=== PATIENT | male | born 1990 | race Two or more races ===

== ENCOUNTER 2024-09-18 23:42 | Emergency (ER) | payer BC, SELFPAY ==
[2024-09-18 23:42] VITALS: BMI 37.5
[2024-09-19 00:29] VITALS: BP 186/116; BP 186/117; PULSE 98; RESP 18; TEMP 37; O2SAT 97
--- NOTE | 2024-09-19 00:54 | PD.EDWOUND ---
ED Wound/Laceration-RME/HPI General Chief Complaint: Wound/Laceration Stated Complaint: R THUMB LAC Time Seen by Provider: 09/18/24 23:48 Arrival date/time: 09/18/24 23:42 34-year-old male reports with complaints of a laceration to the right thumb. Patient states while picking up a mirror it sliced a part of his right thumb off he denies numbness or tingling decreased range of motion or weakness of the thumb. Patient does not recall last tetanus update. Patient denies history of hypertension he also denies shortness of breath chest pain nausea vomiting dizziness blurred vision ringing in ears or headache Limitations: no limitations Related Data Home Medications ?Medication ?Instructions ?Recorded ?Confirmed NO HOME MEDS ##0 11/12/09 Allergies Allergy/AdvReac Type Severity Reaction Status Date / Time NKA* Allergy Uncoded 09/18/24 23:44 Review of Systems Constitutional Constitutional: Denies chills, Denies fatigue and Denies fever(s) Musculoskeletal Musculoskeletal: Denies arthralgias, Denies deformity, Denies joint swelling, Denies numbness and Denies tingling Integumentary/Breasts Skin/Breast: Denies unusual bruising and Reports wounds Neurologic Neurologic: Denies numbness and Denies tingling Endocrine Endocrine: Denies fatigue Hematologic/Lymphatic Hematologic/Lymphatic: Denies easy bleeding and Denies easy bruising Past Medical History Social History SMOKING STATUS: Never smoker ED Exam General Limitations: Present no limitations General appearance: Present alert and in no apparent distress Extremities Exam Extremities exam: Present other (right thumb with 1 cm in diameter skin avulsion volar aspect, no ligament or tendon involvment, FROM, cap refill < 2 sec, sensory intact, strength 5/5 remainder of hand unremarkable, wrist FROM pulses/reflexes 2+, sensory intact) Neurological Exam Neurological exam: Present alert, oriented X3 and CN II-XII intact Psychiatric Psychiatric exam: Present normal affect and normal mood Skin Skin exam: Present warm, dry, intact and normal color Course Quality Measures none Orders Category Date Time Status Wound Care NOW Care 09/19/24 00:53 Active Tet,Diphth,Pertuss(Acell)-Tdap [Boostrix Vacc] Med 09/19/24 00:53 Discontinued 0.5 ml IMI .ONCE ONE Vital Signs Vital signs: Vital Signs Temperature 98.6 F 09/19/24 00:29 Pulse Rate 98 09/19/24 00:29 Respiratory Rate 18 09/19/24 00:29 Blood Pressure 186/117 H 09/19/24 00:29 Pulse Oximetry (%) 97 09/19/24 00:29 Oxygen Delivery Method Room Air 09/19/24 00:29 Wound / Laceration Patient data External records reviewed:: None Clinical information provided by:: patient Social determinants that could affect healthcare access:: none Patient has the following chronic illnesses:: none How is presenting disease/condition affected by chronic disease/condition?: no chronic disease Evaluation data The following diagnostics were reviewed and interpreted by me:: other (specify) (none) Lab and/or radiology exams considered but not ordered:: none Interpretation Summary: n/a Medications / Prescriptions Medications or Prescriptions considered but not ordered:: none Medication administrations:: Medication Administration History Discontinued Medications Diphtheria/Tetanus/Acell Pertussis (Diphth,Pertuss(Acell),Tet Vac 0.5 Ml Syr) 0.5 ml IMi .ONCE ONE Stop: 09/19/24 00:54 Tdap Consultations Consultation(s) initiated? (list below): No Diagnosis Wound Differential Diagnosis: laceration, abrasion and avulsion of skin Most likely diagnosis given after review of the tests above:: Skin avulsion of thumb, right Admission Indicated Admission indicated?: not indicated Admission Request Was there a request for admission?: No Disposition Plan Disposition Plan: Discharge Discharge Attestation Discharge Attestation: The patient and all family members were given an opportunity to ask questions and understood the discharge instructions. Discharge instructions specifically effects, indications for sooner follow up or return to the emergency department, and the expected course of current diagnosis. Patient condition: Stable Discharge Plan Plan Patient Disposition: HOME (Self Care) Prescriptions/Referrals Prescriptions/Med Rec: No Action NO HOME MEDS Qty: 0 Problem List Clinical Impression: Avulsion of skin, Elevated blood pressure reading Patient/Caregiver Discharge Instructions Discharge Activity: activity as tolerated Education Materials: ED Laceration Small No Sutr Ch Additional Instructions: follow up with your PCP in 24-48 hours for blood pressure. Return to the emergency room if you develop symptoms Do not remove dressing for 24 hours, then remove submerged in water, avoid pulling bandage off roughly -it will cause bleeding again. keep area clean and dry and follow up with your PCP as needed Print Language: Bengali Stand Alone Forms: Cheryl Award Info., Patient Portal Info Letter Vaccines Vaccines Given During Stay: TDaP
[2024-09-19] MEDS: DIPHTH,PERTUSS(ACELL),TET VAC 0.5 ML SYR IMi (01:15)
== END 2024-09-19 01:25 | disposition home or self-care (01) ==
LOC: SERX 09-19 01:36
PROVIDERS: Emergency Provider Emergency Medicine
DX: S61.011A Laceration without foreign body of right thumb without damage to nail, initial encounter (principal); Z23 Encounter for immunization; R03.0 Elevated blood-pressure reading, without diagnosis of hypertension; W25.XXXA Contact with sharp glass, initial encounter
CPT/HCPCS: 90471; 90715; 99282